=== PATIENT | female | born 1985 | race Caucasian/White ===

== ENCOUNTER → 2018-04-23 | Outpatient (CLI) | payer OTHER ==
[2018-04-23 17:12] LABS: BASO % 0.4 % (0.0-1.0); EOS # 0.1 10^3/uL (0.0-0.50); EOS % 0.8 % (0.0-3.0); IMMATURE GRANULOCYTE % 0.4 % (0-3.0); LYMPH # 1.8 10^3/uL (1.5-4.5); LYMPH % 24.4 % (24.0-44.0); MEAN CORPUSCULAR HEMOGLOBIN 29.9 pg (27.0-33.0); MEAN CORPUSCULAR HGB CONC 35.3 g/dl (32.0-36.5); MEAN CORPUSCULAR VOLUME 84.6 fl (80.0-96.0); MONO # 0.5 10^3/uL (0.0-0.8); MONO % 7.2 % (0.0-5.0); NEUTROPHILS % 66.8 % (36.0-66.0); PLATELET COUNT, AUTOMATED 294 10^3/uL (150-450); RED BLOOD COUNT 4.02 10^6/uL (4.00-5.40); RED CELL DISTRIBUTION WIDTH 11.8 % (11.5-14.5); WHITE BLOOD COUNT 7.5 10^3/uL (4.0-10.0)
[2018-04-23 21:21] LABS: CHLAMYDIA DNA AMPLIFICATION NEGATIVE (NEGATIVE); GC DNA AMPLIFICATION NEGATIVE (NEGATIVE)
[2018-04-26 12:42] LABS: HBsAg Prenatal NEGATIVE (NEGATIVE); HIV 1&2 SCREEN CENTAUR NEGATIVE (NEGATIVE); RUBELLA IgG QUALITATIVE IMMUNE (IMMUNE)
[2018-04-26 12:42] LABS: HEPATITIS C VIRUS ABY INDEX 0.1 INDEX (<0.8)
== END ==
LOC: M LRY 13:58
DX: Z34.81 Encounter for supervision of other normal pregnancy, first trimester (principal); Z36.89 Encounter for other specified antenatal screening; Z3A.09 9 weeks gestation of pregnancy
CPT/HCPCS: 86762

== ENCOUNTER → 2018-06-18 | Outpatient (CLI) | payer OTHER | LOC: M LRY 08:11 | DX: Z34.82 Encounter for supervision of other normal pregnancy, second trimester (principal); Z36.89 Encounter for other specified antenatal screening; Z3A.19 19 weeks gestation of pregnancy | CPT/HCPCS: 76811 ==

== ENCOUNTER → 2018-08-27 | Outpatient (CLI) | payer OTHER ==
[2018-08-27 12:40] LABS: HEMATOCRIT 32.7 % (36.0-47.0); HEMOGLOBIN 11.2 g/dl (12.0-15.5); MEAN CORPUSCULAR HGB CONC 34.3 g/dl (32.0-36.5); MEAN CORPUSCULAR VOLUME 90.6 fl (80.0-96.0); PLATELET COUNT, AUTOMATED 248 10^3/uL (150-450); RED BLOOD COUNT 3.61 10^6/uL (4.00-5.40)
--- NOTE | 2018-09-02 09:57 | REP ---
Clinical: Anatomical evaluation. Comparison: 06/18/2018 . Findings: Examination demonstrates a single live intrauterine in cephalic presentation. motion is identified by technologist. Placenta is noted anterior and grade II without evidence for placenta previa or abruption. Amniotic fluid volume is normal. Cervix measures 3.2 cm in length and appears closed. No evidence for nuchal cord. Gestational age by LMP 28 weeks 4 days with ROYER 11/15/2018 . Gestational age by first US 29 weeks 5 days with ROYER 11/07/2018 . Gestational age by current measurements 30 weeks 1 day with ROYER 11/04/2018 FHR equals 153 beats per minute. Amniotic fluid index: 19.6 cm (9.1 - 23.3) Umbilical cord SD ratio: 2.49 (2.50 - 3.50) Estimated weight 1565 grams ( 58th percentile). Anatomical assessment demonstrates normal structures including cranium, cavum, cerebellum/posterior fossa, facial features, lungs, four-chamber heart/ventricular outflow tracts, diaphragm, stomach, cord insertion/three-vessel cord, kidneys/bladder, spine, and extremities. Impression: Single live intrauterine in cephalic presentation demonstrating appropriate interval growth. Anatomical assessment is complete and normal. No gross abnormalities are identified. Electronically Signed by Germán Chadwick MD 09/02/2018 09:48 A
== END ==
LOC: M LRY 08:07
PROVIDERS: ATTEND Obstetrics & Gynecology
DX: Z34.82 Encounter for supervision of other normal pregnancy, second trimester (principal); Z36.89 Encounter for other specified antenatal screening; Z3A.28 28 weeks gestation of pregnancy

== ENCOUNTER 2018-11-08 01:28 | Inpatient (IN) | payer OTHER ==
[2018-11-08] VITALS (26 sets, daily range): BP systolic 108–156; BP diastolic 53–92
[~2018-11-08] VITALS: Ht 160 cm; Wt 74.9 kg
[2018-11-08] MEDS ORDERED: PRENTAB55 PO (01:53)
[2018-11-08] MEDS ORDERED: VALT500T PO (01:53)
[2018-11-08] MEDS ORDERED: PENICILLIN G POTASSIUM IV 5 MU in D5W MINI-BAG PLUS 100 ML IV ONE (02:30)
[2018-11-08] MEDS ORDERED: PENICILLIN G POTASSIUM 5 MU VIAL As Ordered ONE (02:35)
[2018-11-08 02:39] LABS: HEMATOCRIT 34.4 % (36.0-47.0); HEMOGLOBIN 11.6 g/dl (12.0-15.5); MEAN CORPUSCULAR HEMOGLOBIN 30.8 pg (27.0-33.0); MEAN CORPUSCULAR HGB CONC 33.7 g/dl (32.0-36.5); MEAN CORPUSCULAR VOLUME 91.2 fl (80.0-96.0); PLATELET COUNT, AUTOMATED 169 10^3/uL (150-450); RED BLOOD COUNT 3.77 10^6/uL (4.00-5.40); WHITE BLOOD COUNT 6.8 10^3/uL (4.0-10.0)
[2018-11-08] MEDS ORDERED: LACTATED RINGER'S 1000 ML IV STA (03:43)
[2018-11-08] MEDS ORDERED: FENTANYL 2MCG/ML ROPIVACAINE 0.2% IN 0.9% NACL 100ML IVBAG As Ordered ONE (04:59)
[2018-11-08] MEDS: LR 1,000 ML IV SCH ×2 (05:26→08:47)
[2018-11-08] MEDS ORDERED: NALOXONE INJ 0.4 MG/1 ML VIAL (J2310) IV PRN (05:55)
[2018-11-08] MEDS ORDERED: FENTANYL/ROPIVACAINE/NACL BAG 100 ML EPIDURAL SCH (05:55)
[2018-11-08] MEDS ORDERED: EPIDURAL COMMENT XX SCH (05:55)
[2018-11-08] MEDS ORDERED: diphenhydrAMINE INJ 50MG/ML VIAL (J1200) IV PRN (05:55)
[2018-11-08] MEDS ORDERED: LACTATED RINGER'S 1000 ML IV PRN (05:55)
[2018-11-08] MEDS ORDERED: REFRIGERATOR IV KEYS XX PRN (05:55)
[2018-11-08] MEDS ORDERED: ONDANSETRON 4MG/2ML VIAL (J2405) IV PRN (05:55)
[2018-11-08] MEDS ORDERED: EPIDURAL/PCA KEYS XX PRN (05:55)
[2018-11-08] MEDS ORDERED: ePHEDrine SULFATE 25 MG/5 ML(5MG/ML) SYRINGE IV PRN (05:55)
[2018-11-08] MEDS ORDERED: PENICILLIN G POTASSIUM IV 2.5 MU in APPROPRIATE DILUENT 1 EA IV SCH (06:45)
--- NOTE | 2018-11-08 06:45 | NUR ---
L&D H&P HPI: 33 year old at 39+0 weeks estimated gestation. Expected date of confinement: 11/15/18. dated by LMP c/w first TM US. Presents today wit h complaint of painful, uterine contractions and SROM at 0030 this AM. Denies vaginal bleeding. Reports regular movement. course uncomplicated. labs: Blood type A+, antibody screen negative, rubella immune, VDRL nonreactive , hepatitis B surface antigen negative, HIV negative, hepatitis C antibody negative, GC/CT negative, aneuploidy/maternal serum screening: low risk cfDNA, 1 hour glucose challenge test: 67, GBS positive Vaccinations: Tdap 09/30/18 Radiology/OB US: no anomalies or placental abnormalities detected. 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 No murmurs, rubs or gallops. Lungs: Clear to auscultation bilaterally. No wheezes, crackles, rales or rhonchi. Abdomen: Uterine fundal height consistent with dates. No guarding or rebound tenderness. Extremities: No clubbing, cyanosis or edema. Normal deep tendon reflexes. Sterile vaginal exam: 5 cm, 90 %effacement, 0 station, cephalic, grossly ruptured/clear fluid External monitoring: heart rate category 1 Tocodynamometer: contractions occurring every 3-5 min Assessment/Plan 33 year old at 39+0 weeks gestation. Diagnosis: active labor/SROM , full term gestation. Reassuring and maternal status. -Admit to labor and delivery with routine labs and orders -External monitoring and tocodynamometer -Pediatrics and anesthesia consultations as needed. -GBS prophylaxis with IV penicillin -Augment labor with Pitocin as needed Dr. Jaden Dodson, DO, FACOG
[2018-11-08] MEDS ORDERED: OXYTOCIN DRIP 30 UNITS in APPROPRIATE DILUENT 1 EA IV SCH ×2 (08:30→11:12)
[2018-11-08] MEDS ORDERED: ANUSOL HC CREAM 30GM TOP PRN (11:15)
[2018-11-08] MEDS ORDERED: DOCUSATE SODIUM 100 MG CAP PO PRN (11:15)
[2018-11-08] MEDS ORDERED: MEASLES,MUMPS,RUBELLA VACCINE INJ (MMR-II) (90707) SC SCH (11:15)
[2018-11-08] MEDS ORDERED: IBUPROFEN 800 MG TAB PO PRN (11:15)
[2018-11-08] MEDS ORDERED: METHYLERGONOVINE MALEATE 0.2 MG TAB PO PRN (11:15)
[2018-11-08] MEDS ORDERED: DIBUCAINE 1% OINTMENT 30GM TOP PRN (11:15)
[2018-11-08] MEDS ORDERED: ACETAMINOPHEN 500 MG TAB PO PRN (11:15)
[2018-11-08] MEDS ORDERED: RHOGAM 300 MCG (1500 IU) INJ (J2790) IM SCH (11:15)
--- NOTE | 2018-11-08 12:13 | DNPDOC ---
[facility] Delivery Note Delivery Note DATE OF DELIVERY: 11/08/2018 at 0945 PREDELIVERY DIAGNOSIS: 39-0/7 weeks' gestation and labor. POST DELIVERY DIAGNOSIS: Delivered. PROCEDURE: Spontaneous vaginal delivery. RN ACUTE CARE: Ish Dugan CNM, VENUS ANESTHESIA: epidural. ESTIMATED BLOOD LOSS: 200 mL. FINDINGS: 7 pounds 4 ounces; 3280 grams; female , Score 9/9; AMA. DELIVERY SUMMARY: Patient is a 33-year-old female who is now a at 39 weeks who presented to L&D with SROM. She progressed to fully dilated at 0939 and pushed to a living female in the BUSHRA position with restitution to ROT at 0945. The anterior shoulder delivered with ease and the corpus immediately followed with ease. The baby was placed on the maternal abdomen active and crying. The cord was clamped x2 after pulsation ceased and cut by provider. A 3- vessel cord was noted. The placenta delivered spontaneously and intact at 0948. Uterine hemostasis was achieved via rapid infusion of IV Pitocin and fundal massage. The vagina and perineum were inspected and found to have a 1st degree perineal laceration that was repaired with a 3.[address]-1. Mom and baby are both in stable condition. ISH DUGAN CNM Nov 08, 2018 12:13
[2018-11-08] MEDS ORDERED: SLF 3 ML SYR IV PRN (16:45)
[2018-11-08] MEDS: SLF 3 ML SYR IV SCH (22:26)
[2018-11-09 06:00] VITALS: BP 102/68
[2018-11-09] MEDS: SLF 3 ML SYR IV SCH (06:13)
[2018-11-09] MEDS ORDERED: MAPA500T2 PO (07:27)
[2018-11-09] MEDS ORDERED: IBUP-1114 PO (07:27)
[2018-11-09] MEDS ORDERED: PRENATAL VITAMINS CHEWABLE TABLET PO SCH (09:00)
== END 2018-11-09 11:15 | disposition home or self-care (01) | DRG 807 ==
LOC: M LDO 01:28 → M LDI 02:09 → M OBS 13:00
PROVIDERS: ADMIT Obstetrics & Gynecology; ATTEND Advanced Practice Midwife
PROC: 10E0XZZ Delivery of Products of Conception, External Approach (ICD-10-PCS; principal; 2018-11-08)
PROC: 0HQ9XZZ Repair Perineum Skin, External Approach (ICD-10-PCS; 2018-11-08)
DX: O99.824 Streptococcus B carrier state complicating childbirth (principal); Z37.0 Single live birth; Z3A.39 39 weeks gestation of pregnancy; O70.0 First degree perineal laceration during delivery